=== PATIENT | female | born 1945 | race Caucasian/White ===

== ENCOUNTER 2025-06-14 13:50 | Outpatient (AMB) | payer OTHER, SELFPAY ==
--- NOTE | 2025-06-14 13:58 | MHC.OFFVIS ---
Intake Visit Reasons: 4M Smoking Tobacco Packing Machine Hand Required: Yes Smoking Tobacco Packing Machine Hand Services: Smoking Tobacco Packing Machine Hand Offered & Declined (Daughter to translate) Accompanied by: Daughter Allergies No Known Allergies Allergy (Unverified 06/14/25 14:01) Medication List - Last Reconciled 06/14/25 by Anya Seymour CNP atorvastatin 20 mg PO DAILY clotrimazole 1% 0.1 mL topical BID donepezil 10 mg PO BEDTIME levothyroxine 88 mcg PO DAILY losartan 100 mg PO DAILY memantine 10 mg PO BID mirtazapine 15 mg PO BEDTIME omeprazole 20 mg PO DAILY ropinirole 0.5 mg PO TID sertraline 50 mg PO DAILY 90 days trazodone 50 mg PO BEDTIME HPI Comments Details: 80-year-old woman with history of 3 unprovoked syncopal episodes in 2013, admitted to [facility] for syncopal or pre-syncopal episode in 06/2019 without further episodes, here for progressive cognitive decline for 6+ years.? She was?doing okay. She was living with her daughter. Memory was about the same, forgetful and needed reminders. Appetite was okay. Mood was okay. Sleep was okay. No falls. [facility] Medical History (Updated 06/14/25 @ 14:01 by Anya Seymour CNP) Syncope Cerebral microvascular disease Review of Systems Const Denies chills, Denies daytime sleepiness, Denies difficulty sleeping, Reports fatigue, Denies fever(s), Denies frequent falls, Denies headache(s), Denies increased appetite, Denies poor appetite, Denies snoring, Denies weakness, Denies weight gain and Denies weight loss Eyes Denies loss of vision ENT Denies vertigo, Reports dizziness, Denies headache(s) and Denies neck pain Card Denies chest pain at rest, Denies chest pain with activity, Denies syncope, Denies leg edema, Denies palpitations, Denies dyspnea and Denies dyspnea on exertion Resp Denies cough, Denies dyspnea, Denies dyspnea on exertion and Denies snoring GI Denies abdominal pain, Denies constipation, Denies heartburn, Denies diarrhea and Denies nausea Denies urinary frequency, Denies urinary incontinence and Denies urinary urgency Musc Denies abnormal gait, Denies back pain, Denies myalgias, Denies arthralgias, Denies neck pain, Denies numbness and Denies tingling Neuro Denies abnormal gait, Denies vertigo, Reports dizziness, Denies syncope, Denies frequent falls, Denies headache(s), Denies lack of coordination, Denies loss of vision, Reports memory loss, Denies numbness, Denies Other visual disturbances, Denies restless legs, Denies seizure-like activity, Denies tingling, Denies paresthesias, Denies tremor(s) and Denies weakness Psych Denies anxiety, Reports depression, Denies auditory hallucinations, Reports memory loss and Denies visual hallucinations Endo Reports fatigue and Denies palpitations Physical Exam Const Other: General Appearance:? normal, in no acute distress. Heart:? S1, S2 normal, no murmurs. Lungs:? clear anteriorly and posteriorly. Musculoskeletal:? normal. Extremities:? no edema. Psych:? alert, as below. Neuro Other: Abnormal Neurological Findings:?MMSE < 15/30 Mental Status: alert, as below. Cranial Nerves: Pupils are equal, round, and reactive to light. External ocular muscles are intact. Visual zepeda are full, no ptosis. Face is symmetrical, no facial weakness or droop. Facial sensations are normal. Tongue protrudes in midline. Palate elevates symmetrically. Shoulder shrugging is normal Motor Examination: Normal muscle tone, bulk and strength. No atrophy or fasciculations. No drift of the extended upper extremities. DTR 2+. Plantars are flexor. Sensory Exam: Normal light touch, temperature, pinprick, vibration, and joint-position sensations. Rhomberg sign is absent. Coordination: No ataxia. No titubation. Gait Exam: Within normal limits. Cerebellar Signs: [id number] is okay. Extrapyramidal System: No tremor, rigidity with normal facial expressions. No bradykinesia. No bradyphrenia. Normal arm swing and posture. No propulsion or retropulsion. Speech: Normal. MMSE Level of Consciousness: Alert. Orientation: Does not know correct year, month, date, or day. Knows season and state. Does not know county or city. Knows correct location. Does not know floor. Registration: Able to register 3 objects. Attention: Serial 7's unable. Recall: Able to recall 0 out of 3 objects. Language: Normal spontaneous speech, fluency, repetition, naming, comprehension, reading, and writing. Total Score: <15/30. Results Reviewed Results Reviewed: 09/08/19 EEG- WNL Assessment & Plan Assessment & Plan (1) Alzheimers disease: Code(s): G30.9 - Alzheimer's disease, unspecified; F02.80 - Dementia in other diseases classified elsewhere, unspecified severity, without behavioral disturbance, psychotic disturbance, mood disturbance, and anxiety Category: Medical Plan: Continue donepezil 10mg 1 tablet at bedtime. Continue memantine 10mg 1 tablet twice a day. Continue sertraline 50mg 1 tablet daily. Stay physically and socially active. Follow up in 6 months or sooner as needed. (2) Depression: Code(s): F32.A - Depression, unspecified Category: Medical Qualifiers: Depression Type: unspecified Qualified Code(s): F32.A - Depression, unspecified Plan . Medications: New memantine 10 mg PO BID 180 tabs 1RF 90 days donepezil 10 mg PO BEDTIME 90 tabs 1RF 90 days Coding Level of Care Code Est Pt Level 4 (40543) Diagnoses Alzheimers disease G30.9; F02.80 Depression, unspecified depression type F32.A Depression Type: unspecified
--- OUTSIDE RECORDS SUMMARY | 2025-06-14 18:03 | XMS_ITS | Patient Health Record ---
Author Organization [facility] Address [address] [place] [phone] Care Team Providers Care Metal Fabricator Welder Name Role Phone Juan Manuel Lorenz Unavailable [phone] Reason For Referral No Information Plan Of Treatment No Information
--- OUTSIDE RECORDS SUMMARY | 2025-06-14 18:03 | XMS_ITS | Clinical Summary ---
Author Organization [facility] [address] [facility] Address [address] [place] [address] Phone Care Team Providers Care Flight Data Technician Name Role Phone Denisse Ochoa MD Primary Care Provider [phone] Allergies No known active allergies Medications citalopram (CeleXA) 10 mg tablet TAKE 1 TABLET BY MOUTH EVERY DAY 90 tablet 1 05/29/20 24 Active meclizine (ANTIVERT) 12.5 mg tablet TAKE 1 TABLET BY MOUTH 3 TIMES DAILY NEEDED (VERTIGO). 03/07/20 24 Active dicyclomine (BENTYL) 10 mg capsule TAKE 1 CAPSULE BY MOUTH 4 TIMES DAILY (BEFORE MEALS AND NIGHTLY). 03/01/20 24 Active donepeziL (ARICEPT) 10 mg tablet Take 1 Tablet by mouth at bedtime. 07/13/19 24 Active ciclopirox (LOPROX) 0.77 % gel Apply 1 Application topically 1 (one) time each day. 06/24/20 23 Active estradioL (ESTRACE) 0.01 % (0.1 mg/gram) vaginal cream Apply a pea sized amount of cream with your finger into the vagina daily at bedtime for 2 weeks, then two times a week at night. 04/22/20 22 Active memantine (NAMENDA) 10 mg tablet Take 1 tablet (10 mg total) by mouth 2 (two) times a day. 05/28/20 24 Active sertraline (ZOLOFT) 50 mg tablet Take 1 tablet (50 mg total) by mouth 1 (one) time each day. for 90 days 06/07/20 24 Active atorvastatin (LIPITOR) 20 mg tablet TAKE 1 TABLET BY MOUTH EVERY DAY 90 tablet 3 10/19/19 25 Active levothyroxine (SYNTHROID, LEVOTHROID) 88 mcg tablet Take 1 tablet (88 mcg total) by mouth 1 (one) time each day before breakfast. 90 tablet 2 10/19/19 25 Active traZODone (DESYREL) 50 mg tablet TAKE 1 TABLET BY MOUTH EVERYDAY AT BEDTIME 90 tablet 3 02/22/20 25 Active losartan (COZAAR) 100 mg tablet Take 1 tablet (100 mg total) by mouth 1 (one) time each day. 90 tablet 1 03/13/20 25 Active mirtazapine (REMERON) 15 mg tablet TAKE 1 TABLET BY MOUTH EVERYDAY AT BEDTIME 90 tablet 4 05/25/20 25 Active omeprazole (PriLOSEC) [address] capsule TAKE 1 CAPSULE BY MOUTH DAILY FOR 360 DAYS. 90 capsule 1 05/25/20 25 Active rOPINIRole (REQUIP) 0.5 mg tablet TAKE 1 TABLET BY MOUTH 3 TIMES A DAY. 270 tablet 1 05/25/20 25 Active clotrimazole (LOTRIMIN) 1 % external solution APPLY 2 DROPS TOPICALLY 2 TIMES DAILY FOR 360 DAYS. 90 mL 3 05/25/20 25 Active omeprazole (PriLOSEC) [address] capsule TAKE 1 CAPSULE BY MOUTH DAILY FOR 360 DAYS. 90 capsule 1 05/16/20 24 025 Discontinued mirtazapine (REMERON) 15 mg tablet Take 1 Tablet by mouth at bedtime. 03/07/20 24 025 Discontinued rOPINIRole (REQUIP) 0.5 mg tablet TAKE 1 TABLET BY MOUTH 3 TIMES A DAY. 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 02/03/2017 Thoracic compression fracture 06/09/2016 Severe episode of recurrent major depressive disorder, without psychotic features 04/28/2016 B12 deficiency 03/19/2016 Osteoporosis 01/15/2016 Vitamin D deficiency 01/15/2016 Back pain 02/07/2009 Overview (05/30/2024): 08/06/14 compression fracture T5 Diverticulosis of colon 02/07/2009 HTN (hypertension) 02/07/2009 Overview (05/30/2024): MRI of brain 2014/ minimal micro vascular ischemic disease Hyperlipidemia 02/07/2009 Neck pain 02/07/2009 Immunizations Immunization Administration Dates Next Due Influenza Quadravalent, MDCK , 0.5ml, with preservative (Flucelvax) 6mo and older 06/09/2017 Influenza trivalent, 0.5mL ( Fluad) 65yo and older 09/01/2022,03/20/2020,03/19/2016 Pneumococcal conjugate 13 va lent (Prevnar 13, PCV13) 2mo and older 08/26/2016 Pneumococcal polysaccharide 23 valent (Pneumovax 23) 2yo and older 05/13/2018 Td Tetanus diptheria (Tdvax) 7yo and older 06/09 Surgical History Surgery Date Site/Laterality Comments COLONOSCOPY 02/18/2017 PROCEDURE: HISTORICAL COLONOSCOPY; COMMENT: negative OTHER SURGICAL HISTORY PROCEDURE: PA TOT ABD HYST W/PARAORTIC & PELVIC LYMPH NODE RICHARD Medical History Medical History Date Comments HTN (hypertension) DX:HTN (hyper tension) Hypothyroid DX:Hypothyroid RLS (restless legs syndrome) DX: RLS (restless legs syndrome) Back pain 02/07/2009 DX:Back pain; CO MMENT: On and off for years. 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 Anxiety 09/27/2017 DX:Anxiety IBS (irritable bowel syndrome) 09/15/2018 D X:IBS (irritable bowel syndrome) Family History Medical History Relation Name Comments Breast cancer Daughter 52 Coronary artery disease Father Stroke Mother Relation Name Status Comments Daughter 52 Alive Father Mother Social History Tobacco Use Types Packs/Day Years Used Date Smoking Tobacco: Never Smokeless Tobacco: Never Tobacco Cessation:Counseling Given: Not Answered Alcohol Use Standard Drinks/Week Comments No 0 (1 standard drink = 0.6 oz pur e alcohol) Comments No Sex and Gender Information Value Date Recorded Sex Assigned at Not on file Legal Sex Female 4:37 AM EST Gender Identity Not on file Sexual Orientation Not on file Last Filed Vital Signs Vital Sign Reading Time Taken Comments Blood Pressure 136/86 01/15/2025 2:30 PM EDT Pulse 62 01/15/2025 2:30 PM EDT Temperature 36.1 C (97 F) 01/15/2025 2:30 PM EDT Respiratory Rate 14 03/14/2025 2:54 PM EDT Oxygen Saturation 93% 01/15/2025 2:30 PM EDT Inhaled Oxygen Concentration - - Weight 69.9 kg (154 lb) 03/14/2025 2:54 PM EDT Height 157.5 cm (5' 2 ) 03/14/2025 2:54 PM EDT Body Mass Index 28.17 03/14/2025 2:54 PM EDT Plan of Treatment Upcoming Encounters Date Type Department Care Team (Late st Contact Info) Description 06/19/2025 1:00 PM EST Office Visit Internal Medicine - [address] [place] [phone] Denisse Ochoa MD [address] [place] [phone] 09/11/2025 1:15 PM EDT Office Visit Orthopedics [address] [phone] Mau Benz PA [address] [place] [phone] Health Maintenance Due Date Last Done Comments Zoster Vaccines (1 of 2) 1964 RSV Immunization Adult Patients (1 - 1-dose 75+ series) 2018 Falls Risk Assessment 06/06/2022 Social Influencers of Health Screening 06/06/2022 COVID-19 Vaccine ( season) 2025 08/05/2022, 12/25/2021, 08/22/2020, Additional history exists Influenza Vaccine (#1) 2025 , 03/20/2020, 02/15/2019, Additional history exists Medicare Annual Wellness Visit 03/07/2025 03/07/2024 Hypertension/CHF/CAD Annual BMP Blood Test 09/13/2025 09/13/2024, 11/04/2023, 11/04/2023 DTaP,Tdap,and Td Vaccines (2 - Td or Tdap) 06/09/2027 06/09/2017 Cholesterol Screening (Lipid Panel) 08/28/2027 08/27/2022 Osteoporosis Screening (Bone Density Screening) 11/29/2030 11/29/2020, 11/18/2016 Pneumococcal Vaccine: 50+ Years Completed 05/13/2018, 08/26/2016 Depression Screening Completed 01/15/2025, 03/07/20 HIB Vaccines Aged Out No longer eligi ble based on patient's age to complete this topic HPV Vaccines Aged Out No longer eligi ble based on patient's age to complete this topic Hepatitis A Vaccines Aged Out No long er eligible based on patient's age to complete this topic Hepatitis B Vaccines Aged Out No long er eligible based on patient's age to complete this topic IPV Vaccines Aged Out No longer eligi ble based on patient's age to complete this topic MMR Vaccines Aged Out No longer eligi ble based on patient's age to complete this topic Meningococcal ACWY Vaccine Aged Out N o longer eligible based on patient's age to complete this topic Meningococcal B Vaccine Aged Out No l onger eligible based on patient's age to complete this topic RSV Immunization Patients Under 20 months Aged Out No longer eligible based on patient's age to complete this topic Varicella Vaccines Aged Out No longer eligible based on patient's age to complete this topic Procedures Procedure Name Priority Date/Time Associated Diagnosis Comments BASIC METABOLIC PANEL Routine 09/13/2024 1:01 PM EDT Mixed hyperlipidemia Primary hypertension DEPRESSION SCREENING Routine 03/07/2024 LIPID PANEL Routine 08/27/2022 DXA BONE DENSITY STUDY 1+ SITS AXIAL SKEL Routine 11/29/2020 2:51 PM EDT Age-related osteoporosis without current pathological fracture from Last 3 Months or Most Recently Relevant to Health Maintenance Results * Basic metabolic panel (09/13/2024 1:01 PM EDT) [facility] Sodium 140 133 - 145 mmol/L LAB CHE[facility] Potassium 4.5 3.5 - 5.5 mmol/L LAB CHEMISTRY METHOD 09/13/2024 3:57 PM [facility] Chloride 106 96 - 110 mmol/L LAB CHEMISTRY METHOD 09/13/2024 3:57 PM [facility] CO2 31 21 - 32 mmol/L LAB CHEMISTRY METHOD 09/13/2024 3:57 PM [facility] Anion Gap 3 3 - 11 LAB CHEMISTRY METHOD 09/13/2024 3:57 PM [facility] Glucose 93 70 - 100 mg/dL LAB CHEMISTRY METHOD 09/13/2024 3:57 PM [facility] BUN 18 5 - 25 mg/dL LAB CHEMISTRY METHOD 09/13/2024 3:57 PM [facility] Creatinine 0.95 0.50 - 1.10 mg/dL LAB CHEMISTRY METHOD 09/13/2024 3:57 PM [facility] eGFR 60 >=60 mL/min/1. 73m2 LAB CHEMISTRY METHOD 09/13/2024 3:57 PM [facility] Comment:Calculation based on the Chronic Kidney Disease Epidemiology Collaboration (CKD-EPI) equation refit without adjustment for race. BUN/Creatinine Ratio 18.9 LAB CHEMISTRY METHOD 09/13/2024 3:57 PM [facility] Calcium 9.9 8.5 - 10.5 mg/dL LAB CHEMISTRY METHOD 09/13/2024 3:57 PM EDT [facility] Blood Venous blood specimen / Unknown Venipuncture / Unknown 09/13/2024 1:01 PM EDT 09/13/2024 1:32 PM EDT Denisse Ochoa MD LAB BLOOD ORDERABLES Final Res ult [facility] [address] [place] [address], [place] [phone] * Depression Screening (03/07/2024) Depression Screening abstracted Historical Provider HEALTH MAINTENANCE Final Result * (ABNORMAL) Lipid panel (08/27/2022) LDL/HDL Ratio 2 0 - 4 Triglycerides 114 0 - 150 mg/dL Cholesterol 245(A) 0 - 200 mg/dL HDL 101 >=40 mg/dL LDL Cholesterol 122(A) 0 - 100 mg/dL Blood Venous blood specimen / Unknown Historical Provider LAB BLOOD ORDERABLES Luana l Result * DXA BONE DENSITY STUDY 1+ SITS AXIAL SKEL (11/29/2020 2:51 PM EDT) Anatomical Region Laterality Modality Bone Densitometr y 08/29/2020 4:07 PM EST Narrative 12/03/2020 1:31 PM EDT BONE DENSITY Lumbar Spine T-score is -4.4 (SD relative to 20-29 y/o adult) Z-score is -1.8 (SD relative to age matched peers) This is consistent with osteoporosis by criteria defined by the WHO. Left Hip T-score is -3.0 Z-score is -0.8 This is consistent with osteoporosis by criteria defined by the WHO. Comparison exam(s): significant decrease in bone density of hip when compared to most recent bone density examination Confidence level is +/-95%. Impression: Based on the World Health Organization criteria, Flores Rose should be classified as having osteoporosis. [facility] Department of Internal Medicine recommends using National Osteoporosis Foundation (NOF) guidelines in treatment decisions related to osteoporosis. NOF guidelines suggest considering treatment for postmenopausal women and men aged 50 or older presenting with the following: History of hip or vertebral fracture. T-score less than or equal to -2.5 (DXA) at the femoral neck, total hip, or spine, after appropriate evaluation to exclude secondary causes. Low bone mass (T-score between -1.0 and -2.5 at the femoral neck or spine) AND a 10-year probability of a hip fracture greater than or equal to 3% OR a 10-year probability of a major osteoporosis-related fracture greater than or equal to 20% based on the [place]-adapted WHO algorithm Please note that all treatment decisions require clinical judgment and consideration of individual patient factors, including patient preferences, co-morbidities, previous drug use, risk factors not captured in the FRAX model (e.g., frailty, falls, vitamin D deficiency, increased bone turnover, interval significant decline in bone density) and possible under- or over-estimation of fracture risk by FRAX. Procedure Note Tab Benites MD - 06/16/2022 BONE DENSITY Lumbar Spine T-score is -4.4 (SD relative to 20-29 y/o adult) Z-score is -1.8 (SD relative to age matched peers) This is consistent with osteoporosis by criteria defined by the WHO. Left Hip T-score is -3.0 Z-score is -0.8 This is consistent with osteoporosis by criteria defined by the WHO. Comparison exam(s): significant decrease in bone density of hip whencompared to most recent bone density examination Confidence level is +/-95%. Impression: Based on the World Health Organization criteria, Flores Rose should beclassified as having osteoporosis. [facility] Department of Internal Medicine recommendsusing National Osteoporosis Foundation (NOF) guidelines in treatmentdecisions related to osteoporosis. NOF guidelines suggest consideringtreatment for postmenopausal women and men aged 50 or older presentingwith the following: History of hip or vertebral fracture. T-score less than or equal to -2.5 (DXA) at the femoral neck, total hip,or spine, after appropriate evaluation to exclude secondary causes. Low bone mass (T-score between -1.0 and -2.5 at the femoral neck or spine)AND a 10-year probability of a hip fracture greater than or equal to 3% ORa 10-year probability of a major osteoporosis-related fracture greaterthan or equal to 20% based on the [place]-adapted WHO algorithm Please note that all treatment decisions require clinical judgment andconsideration of individual patient factors, including patientpreferences, co-morbidities, previous drug use, risk factors not capturedin the FRAX model (e.g., frailty, falls, vitamin D deficiency, increasedbone turnover, interval significant decline in bone density) and possibleunder- or over-estimation of fracture risk by FRAX. Sherri JEFFERSON IMG DXA PROCEDURES Final R esult from Last 3 Months or Most Recently Relevant to Health Maintenance Insurance MEDICAID - [place] [facility] MEDICARE [employer]AGE Care Teams Flight Data Technician Relationship Specialty Start Date End Date Denisse Ochoa MD [address] [place] [phone] PCP - General Internal Medicine 09/29/21
--- OUTSIDE RECORDS SUMMARY | 2025-06-14 18:03 | XMS_ITS | Encounter Summary ---
Author Organization [facility] Address [address] [place] [phone] Phone Care Team Providers Care Bowling Floor Desk Clerk Name Role Phone Pcp, Unknown Primary Care Provider Unavailabl e Encounter Details Date Type Department Care Team (Late st Contact Info) Description 07/20/2023 Procedure Pass [facility], Ct Scan - [address] [address] Social History Tobacco Use Types Packs/Day Years Used Date Smoking Tobacco: Never Assessed Education Answer Date Recorded Are you interested in more education? Not on karthikeyan e 07/20/2023 Are you concerned about learning? Not on file 07/20/2023 No 07/20/2023 No 07/20/2023 Digital Access Answer Date Recorded No 07/20/2023 No 07/20/2023 Reliable internet access at home? Not on file 07/20/2023 Device with a working camera? Not on file Intimate Partner Violence Answer Date R ecorded Are you denied basic needs s uch as food, clothing, or medical care? No 07/20/2023 In the past 12 months have y ou been in a relationship with a person who hurts, threatens, or tries to control you? No 07/20/2023 Are you denied basic needs s uch as food, clothing, or medical care? No 07/20/2023 In the past 12 months have y ou been in a relationship with a person who hurts, threatens, or tries to control you? No 07/20/2023 Comments Unknown Sex and Gender Information Value Date Recorded Sex Assigned at Female 07/20/2023 7:57 PM EST Legal Sex Female 7:47 PM EST Gender Identity Female 07/20/2023 7:57 PM EST Sexual Orientation Not on file documented as of this encounter Functional Status * Calculated C-SSRS Risk Score (Lifetime/Recent) Answer Date of Assessment Author No Risk Indicated 07/20/2023 7:57 PM EST Paty Nance RN * [place] Suicide Severity Rating Scale (Screener/Recent Self-Report) Question Answer Date of Assessment Author 1. Wish to be (Past 1 Month) No 024 7:57 PM Paty Ayoub RN 2. Non-Specific Active Suici soraya Thoughts (Past 1 Month) No 07/20/2023 7:57 PM Haris Ayoub RN 6. Suicidal Behavior (Lifetime) No 7:57 PM Paty Ayoub RN documented as of this encounter Plan of Treatment Not on file documented as of this encounter Visit Diagnoses Not on filedocumented in this encounter Additional Health Concerns Infection Onset Date Last Indicated Resolved Time CoV-Risk 07/20/2023 07/20/2023 07/31/2023 1:22 AM EST documented as of this encounter Care Teams Bowling Floor Desk Clerk Relationship Specialty Start Date End Date Pcp, Unknown PCP - General 07/20/23 documented as of this encounter Additional Source Comments The information contained in this document represents components of the legal health record. It is not the complete legal health record.[facility]
--- OUTSIDE RECORDS SUMMARY | 2025-06-14 18:03 | XMS_ITS | Data Portability ---
Author Organization [place] - [facility], Allergy Address [address] [place] [phone] Care Team Providers Care Reinsurance Claim Analyst Name Role Phone ELENA ANDRADE Primary Care Provider Assessment Encounter Date Assessment Date Assessment LastModified by Organization Details LastModified Time 01/13/2024 01/13/2024 Patient's audiogram shows bilateral mild sensorineural hearing loss with well maintained speech discrimination. There is enough hearing loss to affect day-to-day hearing performance. We discussed how this degree of hearing loss can also be be interpreted by those around her as having more memory loss and she actually has. We discussed in detail the pros and cons of amplification (hearing aids). We discussed the connection between untreated hearing loss and increased risk of dementia, falling and accidents. After full discussion, the patient expressed interest in learning more about amplification options. Accordingly I have provided a copy of the audiogram, a list of [facility] hearing aid providers, and medical clearance for amplification so the patient can pursue this at their convenience. Patient is medically cleared for amplification bilaterally. [email or web address] Not available 01/13/2024 09:59:28 Plan of Treatment Reminders Order Date Submit Date Provider Last Modified By Organization Details Last Modified Time Details Appointments None record ed. Lab None record ed. Referral None record ed. Procedures None record ed. Surgeries None record ed. Imaging None record ed. Medication Orders None record ed. Patient TargetsNo targets recorded. Patient InstructionsNo instructions recorded. Reason for Referral None Reported. Results Created Date Observation Date Name Description Value Unit Range Abnormal Flag Note LastModifiedBy Organization Detail LastModifiedTime 01/13/20 24 12/27/2023 MRI, brain , w/o contr ast No observ ation record ed. [email or web address] Not Available 12/26 11:14:57 01/13/20 24 04/26/2023 CT, brain , w/o contr ast No observ ation record ed. [email or web address] Not Available 12/26 11:17:24 01/13/20 24 audio gram No observ ation record ed. [email or web address] Not Available 12/26 13:38:38 Result Notes None recorded. Problems Name Problem SNOMED Code Status Onset Date Resolution Date Notes Provider Name and Address Organization Details Recorded Time Sensorineural hearing loss of bilateral ears [id number] Active 2023 AALIYAH RODRIGUEZ, AUD [address] [facility], [address], [place], [phone], [facility] 09:28:48 Problem Notes None recorded. Procedures Surgical History Date Name Laterality Status Provider Name and Address Organization Details Recorded Time 01/13/2024 Comp Audio with Tymps - 85390 & [id number] completed AALIYAH RODRIGUEZ, AUD [address] [facility] [address], [place], [phone], [facility] 01/13/2024 09:28:40 Imaging Results None recorded. Procedure Notes None recorded. Medical Equipment None Reported. Allergies No known drug allergies Medications Name Sig Start Date Stop Date Status Note LastModified by Organization Details LastModified Time losartan 50 mg tablet TAKE 1 TABLET BY MOUTH EVERY DAY FOR 180 DAYS active Not Available Not Available No t Available atorvastati n 20 mg tablet TAKE 1 TABLET BY MOUTH EVERY DAY active Not Available Not Available No t Available citalopram 10 mg tablet TAKE 1 TABLET BY MOUTH EVERY DAY active Not Available Not Available No t Available donepezil 10 mg tablet TAKE 1 TABLET BY MOUTH EVERYDAY AT BEDTIME active Not Available Not Available No t Available prednisone 20 mg tablet TAKE 2 TABS DAILY FOR 3 DAYS AND THEN 1 TAB DAILY 01/12 completed Not Available Not Available Not Available clonazepam 1 mg tablet TAKE 1 TO 2 TABLETS BY MOUTH EVERY DAY AT BEDTIME FOR REM SLEEP BEHAVIOR DISORDER active Not Available Not Available No t Available meclizine 12.5 mg tablet TAKE 1 TABLET BY MOUTH 3 TIMES DAILY NEEDED (VERTIGO) . active Not Available Not Available No t Available levothyroxi ne 75 mcg tablet TAKE 1 TABLET BY MOUTH DAILY. active Not Available Not Available No t Available levothyroxi ne 88 mcg tablet TAKE 1 TABLET BY MOUTH EVERY DAY active Not Available Not Available No t Available cephalexin 500 mg capsule TAKE 1 CAPSULE BY MOUTH EVERY 8 HOURS 01/12 completed Not Available Not Available Not Available ropinirole 0.5 mg tablet TAKE 1 TABLET BY MOUTH 3 TIMES DAILY FOR 360 DAYS. active Not Available Not Available No t Available clotrimazol e 1 % topical solution APPLY 2 DROPS TOPICALLY 2 TIMES DAILY FOR 360 DAYS. active Not Available Not Available No t Available mirtazapine 15 mg tablet TAKE 1 TABLET BY MOUTH AT BEDTIME. active Not Available Not Available No t Available ondansetron 4 mg disintegrat ing tablet DISSOLVE 1 TABLET BY MOUTH EVERY 8 HOURS NEEDED FOR NAUSEA 01/12 completed Not Available Not Available Not Available dicyclomine 10 mg capsule TAKE 1 CAPSULE BY MOUTH 4 TIMES DAILY (BEFORE MEALS AND NIGHTLY). active Not Available Not Available No t Available amoxicillin 875 mg-potassiu m clavulanate 125 mg tablet TAKE 1 TABLET BY MOUTH TWICE A DAY 01/12 completed Not Available Not Available Not Available ciclopirox 0.77 % topical gel APPLY TO AFFECTED AREA TOPICALLY EVERY DAY 01/12 completed Not Available Not Available Not Available memantine 10 mg tablet PLEASE SEE ATTACHED FOR DETAILED DIRECTION S active Not Available Not Available No t Available Vitals None Recorded Social History None recorded. Functional Status None recorded. Mental Status None recorded. Family History Nothing Reported. Medical History Condition Response Anxiety Y Thyroid Problems Y Hypertension Y Depression Y Gynecological HistoryNo gynecological history recorded. Obstetrics History GPAL:G 0 P 0 0 0 0 Past Encounters Encounter ID Performer Location Encounter Start Date Encounter Closed Date Diagnosis/Indication Diagnosis SNOMED-CT Code Diagnosis ICD10 Code Diagnosis IMO Codes Diagnosis Note [id number] RODO TOBIAS MD [facility] [address] [phone] 01/13/2024 09:01:39 01/13/2024 09:59:50 Sensorineural hearing loss of bilateral ears 740207862 H90.3 Audiologic al evaluation results:Ri ght ear:Normal sloping to moderate sensorineu ral hearing loss with excellent word recognitio n.Left ear:Normal sloping to moderate sensorineu ral hearing loss with excellent word recognitio n.Tympanom etry:Right Ear:Type ALeft Ear:Type A Health Concerns Section Related Observation LastModified by Organization Detai ls LastModified Time None Recorded Concern Status LastModified by Organization Details LastModified Time None Recorded Advance Directives Directive None Recorded Payers Insurance Date Sequence Insurance Name Policy Number Policy Arellano Covered Member ID Arellano Member ID Guarantor Name 02/17/2024 1 [facility] [employer] (MEDICARE REPLACEMENT PPO) Flores Rose [id number] Flores Rose Notes Date Note Type Note Provider Name and Address Organization Details Recorded Time 01/13/2024 text/html 78-year-old female with chronic kidney disease, hypertension and memory loss who is referred by her primary care physician. Patient was seen back in June reporting a spinning sensation for the previous 2 months. Patient prescribed meclizine and ENT referral made. Patient comes in today accompanied by her daughter. They report that her dizziness issues have since subsided since starting on appropriate blood pressure medication. She is no longer having any dizziness.Patient also comes in for evaluation of hearing loss. Patient has been noticing difficulty hearing in a variety of different listening environments, particularly exacerbated by background noise. Hearing loss has been gradual over a period of 5 years. Patient notes no tinnitus in either ear. Patient comes in for audiometric testing and discussion of possible remedies for hearing loss. RODO TOBIAS MD [address] [place] [address], [phone] - [facility] 01/13/2024 10:00:09 OBGyn Episode No OBEpisode recorded.
--- OUTSIDE RECORDS SUMMARY | 2025-06-14 18:03 | XMS_ITS | Clinical Summary ---
Author Organization [facility] Address [address] [place] [phone] Phone Care Team Providers Care Sales Enablement Analyst Name Role Phone Pcp, Unknown Primary Care Provider Unavailabl e Allergies No known active allergies Social History Tobacco Use Types Packs/Day Years [...] PM EST Sexual Orientation Not on file Last Filed Vital Signs Vital Sign Reading Time Taken Comments Blood Pressure 182/93 07/21/2023 12:50 AM EST Pulse 68 07/21/2023 12:50 AM EST Temperature 36.7 C (98 F) 07/21/2023 12:50 AM EST Respiratory Rate 16 07/21/2023 12:50 AM EST Oxygen Saturation 98% 07/21/2023 12:50 AM EST Inhaled Oxygen Concentration - - Weight 64.9 kg (143 lb) 07/20/2023 7:59 PM EST Height 157.5 cm (5' 2 ) 07/20/2023 7:59 PM EST Body Mass Index 26.16 07/20/2023 7:59 PM EST Plan of Treatment Health Maintenance Due Date Last Done Comments Adult Td,Tdap Booster 1945 DEPRESSION SCREENING 1955 PNEUMOCOCCAL VACCINES (50+ y ears) (1 of 1 - PCV) 1993 ZOSTER VACCINES (1 of 2) 1993 OSTEOPOROSIS SCREENING INITI AL (ONE-TIME) 02/29/2008 RSV VACCINE (1 - 1-dose 75+ series) 2018 INFLUENZA VACCINE (#1) 2025 COVID-19 VACCINE ( - 2024-2 6 season) 2025 HEPATITIS A VACCINES Aged Out No long er eligible based on patient's age to complete this topic HIB VACCINES Aged Out No longer eligi ble based on patient's age to complete this topic MENINGOCOCCAL VACCINES (ACWY) Aged Out No longer eligible based on patient's age to complete this topic MENINGOCOCCAL VACCINES (B) Aged Out N o longer eligible based on patient's age to complete this topic Medical Devices Not on file Insurance [facility] MEDICARE REPLACEMENT [facility] MEDICARE REPLACEMENT [facility] MEDICARE REPLACEMENT [facility] MEDICARE REPLACEMENT [facility] MEDICARE REPLACEMENT Care Teams Sales Enablement Analyst Relationship Specialty Start Date End Date Pcp, Unknown PCP - General 07/20/23 Additional Source Comments The information contained in this document represents components of the legal health record. It is not the complete legal health record.[facility]
== END 2025-06-14 14:09 | disposition home or self-care (01) ==
LOC: HO.HSM 13:50
PROVIDERS: PCP Internal Medicine; Referring Provider Internal Medicine; Visit Provider Registered Nurse
DX: G30.9 Alzheimer's disease, unspecified (principal); F02.80 Dementia in other diseases classified elsewhere, unspecified severity, without behavioral disturbance, psychotic disturbance, mood disturbance, and anxiety; F32.A Depression, unspecified
CPT/HCPCS: 99214

== ENCOUNTER → 2025-06-14 13:50 | Outpatient (BNVA) | payer OTHER, SELFPAY | PROVIDERS: PCP Internal Medicine; Referring Provider Internal Medicine; Visit Provider Registered Nurse | DX: G30.9 Alzheimer's disease, unspecified (principal); F02.80 Dementia in other diseases classified elsewhere, unspecified severity, without behavioral disturbance, psychotic disturbance, mood disturbance, and anxiety; F32.A Depression, unspecified; Z79.899 Other long term (current) drug therapy | CPT/HCPCS: 99212 ==